=== PATIENT | male | born 1945 | race Two or more races ===

== ENCOUNTER 2020-09-18 12:19 | Emergency (ER) | payer MEDICARE ==
[~2020-09-18] VITALS: Ht 157.5 cm; Wt 76.6 kg
--- NOTE | 2020-09-18 12:54 | NUR ---
Pt report received from BILL Monahan and vivi negro. Lab at bedside for draw at this time. EKG reported to be ST with chest pain reported as unchanged for the last 16 years.
--- NOTE | 2020-09-18 12:56 | NUR ---
PCXR arrived at bedside. tool grinding technician completed draw.
[2020-09-18 13:10] LABS: BASOPHILS % (AUTO) 1 % (0-1); EOSINOPHILS % (AUTO) 5 % (1-7); LYMPHOCYTES % (AUTO) 25 % (22-44); MD NO; MEAN CORPUSCULAR HEMOGLOBIN 30.6 pg (27.5-34.5); MEAN CORPUSCULAR HGB CONC 33.7 g/dL (33.2-36.2); MEAN PLATELET VOLUME 9.4 fL (7.4-10.4); MONOCYTES % (AUTO) 10 % (2-9); NEUTROPHILS % (AUTO) 59 % (42-75); PLATELET COUNT 163 x10^3/uL (130-400); RED BLOOD COUNT 4.99 x10^6/uL (4.38-5.82); RED CELL DISTRIBUTION WIDTH 13.8 % (9.4-14.8)
[2020-09-18 13:19] LABS: ALANINE AMINOTRANSFERASE 25 U/L (12-78); ALBUMIN 4.2 g/dL (3.4-5.0); ANION GAP 3 mmol/L (5-15); CALCIUM 9.5 mg/dL (8.5-10.1); CHLORIDE 107 mmol/L (98-107); CREATININE 1.06 mg/dL (0.7-1.3)
[2020-09-18 13:24] LABS: ALKALINE PHOSPHATASE 109 U/L (45-117); BILIRUBIN,TOTAL 0.5 mg/dL (0.2-1.0); TOTAL PROTEIN 7.5 g/dL (6.4-8.2); TROPONIN I < 0.015 ng/mL (0.000-0.045)
--- NOTE | 2020-09-18 14:33 | NUR ---
Pt able to give UA sample and Covid swab performed by arden KHAN. Med rec being completed at this time.
[2020-09-18 14:48] LABS: MICROSCOPIC NOT IND
[2020-09-18] MEDS ORDERED: ATOR10TA9 PO (14:55)
[2020-09-18] MEDS ORDERED: LOSA50TA14 PO (14:55)
[2020-09-18] MEDS ORDERED: LIDO700A20 TD (14:55)
[2020-09-18] MEDS ORDERED: OMEP-110 PO (14:55)
[2020-09-18] MEDS ORDERED: pred forte (14:55)
[2020-09-18] MEDS ORDERED: metformin (14:55)
[2020-09-18] MEDS ORDERED: TAMS-11 PO (14:55)
--- NOTE | 2020-09-18 14:55 | NUR ---
Pt just returned via gurney to room from radiology. No acute changes while off unit
[2020-09-18 15:52] VITALS: BP 135/78
== END 2020-09-18 15:54 | disposition home or self-care (01) ==
LOC: ED 14:16
DX: R07.89 Other chest pain (principal); R06.02 Shortness of breath; E11.9 Type 2 diabetes mellitus without complications; Z20.822 Contact with and (suspected) exposure to COVID-19; Z87.891 Personal history of nicotine dependence
CPT/HCPCS: 36415; 71045; 71250; 80053; 81003; 83880; 84484; 85025; 87635; 93005; 99285